=== PATIENT | male | born 1995 | race Caucasian/White ===

== ENCOUNTER 2021-01-04 22:31 | Emergency (ER) | payer SELFPAY ==
[~2021-01-04] VITALS: Ht 170.2 cm; Wt 108.9 kg
[2021-01-04 22:37] VITALS: BP_SYST 134
--- NOTE | 2021-01-04 22:37 | NUR ---
Patient to ER CHAIR 1.
--- NOTE | 2021-01-04 22:45 | NUR ---
Dr. Acosta at [facility] for MSE.
--- NOTE | 2021-01-04 22:50 | NUR ---
BIB [facility] FOR MEDICAL CLEARANCE S/P USE OF FORCE TO LEFT ARM. PT HAS NO COMPLAINTS
[2021-01-04 23:15] VITALS: BP_SYST 134
--- NOTE | 2021-01-04 23:15 | NUR ---
Patient given written and verbal discharge instructions and verbalizes understanding. ER MD discussed with patient the results and treatment provided. Patient in stable condition. ID arm band removed. Rx of NONE given. Patient educated on pain management and to follow up with PMD. Pain Scale 0/10. Opportunity for questions provided and answered. Medication side effect fact sheet provided.
== END 2021-01-04 23:15 ==
LOC: SED 22:31
DX: I15.9 Secondary hypertension, unspecified (principal)
CPT/HCPCS: 99283